=== PATIENT | female | born 2000 | race Caucasian/White ===

== ENCOUNTER 2022-03-14 22:48 | Emergency (ER) | payer OTHER, SELFPAY ==
[2022-03-14 22:59] VITALS: BP 145/92; PULSE 96; RESP 20; TEMP 36.7; O2SAT 97
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
[2022-03-15] MEDS: diazePAM 5 MG TABLET PO (01:39)
[2022-03-15] MEDS: KETOROLAC 30 MG/ML VIAL IM (01:39)
[2022-03-15 01:58] VITALS: BP 134/78; PULSE 78; RESP 16; O2SAT 96
== END 2022-03-15 02:00 | disposition home or self-care (01) ==
PROVIDERS: Emergency Provider Emergency Medicine
DX: M54.41 Lumbago with sciatica, right side (principal); W51.XXXA Accidental striking against or bumped into by another person, initial encounter; Y93.F9 Activity, other caregiving; Y99.0 Civilian activity done for income or pay
CPT/HCPCS: 96372; 99283; J1885